=== PATIENT | female | born 1955 | race Caucasian/White ===

== ENCOUNTER 2020-10-22 08:40 | Outpatient (CLI) | payer BC | END 2020-10-22 08:41 | disposition home or self-care (01) | LOC: TBSIIMAG 08:40 | PROVIDERS: ATTEND Nurse Practitioner Family | DX: M47.26 Other spondylosis with radiculopathy, lumbar region (principal); M25.572 Pain in left ankle and joints of left foot | CPT/HCPCS: 72148 ==

== ENCOUNTER 2021-03-20 08:24 | Outpatient (CLI) | payer BC ==
[2021-03-20 10:25] LABS: Hemoglobin 13.3 g/dL (12.0-15.5); Mean Corpuscular HGB CONC 34.4 g/dL (32.0-36.0); Mean Corpuscular Hemoglobin 29.2 pg (27.0-33.0); Mean Corpuscular Volume 84.9 fl (81.6-98.3); Mean Platelet Volume 9.7 fl (7.4-10.4); Platelet Count 326 10x3/uL (150-450); RBC Distribution Width 13.3 % (11.5-14.5); Red Blood Cell (RBC) Count 4.56 10x6/uL (3.90-5.03); White Blood Cell (WBC) Count 7.7 10x3/uL (3.5-10.5)
[2021-03-20 10:34] LABS: Anion Gap 15 mmol/L (10-20); BUN (Urea Nitrogen) 8 mg/dL (9.8-20.1); Calc. Creatinine Clearance 0 mL/min (70-130); Calcium 9.7 mg/dL (7.8-10.44); Carbon Dioxide 27 mmol/L (23-31); Chloride 91 mmol/L (98-107); Glucose 89 mg/dL (80-115); Potassium 3.2 mmol/L (3.5-5.1); Sodium 130 mmol/L (136-145)
[2021-03-20 18:23] LABS: SARS-CoV-2 PCR by NAA Not Detected (NotDetected)
== END 2021-03-20 08:25 | disposition home or self-care (01) ==
LOC: LABBT 08:24
PROVIDERS: ATTEND Neurological Surgery
DX: Z01.818 Encounter for other preprocedural examination (principal); M48.062 Spinal stenosis, lumbar region with neurogenic claudication; Z20.822 Contact with and (suspected) exposure to COVID-19
CPT/HCPCS: 80048; 85027; 93005; 93010; U0003; U0005

== ENCOUNTER 2021-06-13 08:08 | Outpatient (CLI) | payer BC ==
[2021-06-13 12:06] LABS: Hemoglobin 13.1 g/dL (12.0-15.5); Mean Corpuscular HGB CONC 33.7 g/dL (32.0-36.0); Mean Corpuscular Hemoglobin 28.4 pg (27.0-33.0); Mean Corpuscular Volume 84.2 fl (81.6-98.3); Platelet Count 334 10x3/uL (150-450); Red Blood Cell (RBC) Count 4.62 10x6/uL (3.90-5.03); White Blood Cell (WBC) Count 6.7 10x3/uL (3.5-10.5)
[2021-06-13 12:29] LABS: Anion Gap 16 mmol/L (10-20); BUN (Urea Nitrogen) 10 mg/dL (9.8-20.1); Calc. Creatinine Clearance 0 mL/min (70-130); Calcium 9.3 mg/dL (7.8-10.44); Carbon Dioxide 28 mmol/L (23-31); Chloride 87 mmol/L (98-107); Glucose 103 mg/dL (80-115); Potassium 3.9 mmol/L (3.5-5.1); Sodium 127 mmol/L (136-145)
[2021-06-13 17:24] LABS: SARS-CoV-2 PCR by NAA Not Detected (NotDetected)
== END 2021-06-13 08:09 | disposition home or self-care (01) ==
LOC: LABBT 08:08
PROVIDERS: ATTEND Neurological Surgery
DX: Z01.818 Encounter for other preprocedural examination (principal); M48.062 Spinal stenosis, lumbar region with neurogenic claudication; Z20.822 Contact with and (suspected) exposure to COVID-19
CPT/HCPCS: 80048; 85027; 93005; 93010; U0003; U0005

== ENCOUNTER 2021-08-14 08:00 | Inpatient (IN) | payer BC ==
[2021-08-08 11:55] VITALS: BMI 25.8
[2021-08-19] MEDS ORDERED: ceFAZolin 2 GM/Dextrose 50 ML IVPB ONE (07:12)
[2021-08-19] MEDS ORDERED: Midazolam HCl 2 mg/2 ml Vial ONE (07:21)
[2021-08-19] MEDS ORDERED: Fentanyl 100 MCG/2 ML VIAL ONE ×2 (07:30→09:56)
[2021-08-19] MEDS ORDERED: HYDROmorphone 0.5 MG/0.5 ML SYRINGE ONE (07:31)
[2021-08-19] MEDS ORDERED: Ondansetron PF 4 MG/2 ML Vial ONE (07:33)
[2021-08-19] MEDS ORDERED: Rocuronium Bromide 10 MG/ML (10ML VIAL) ONE (07:33)
[2021-08-19] MEDS ORDERED: PROPOFOL 200 MG/20 ML VIAL ONE (07:33)
[2021-08-19] MEDS ORDERED: Dexamethasone 20 MG/5 ML VIAL ONE (07:33)
[2021-08-19] MEDS ORDERED: Lidocaine 1% PF 5 ML VIAL ONE (07:33)
[2021-08-19] MEDS ORDERED: PHENYLEPHRINE-NS 100 MCG/ML 10 ML SYRINGE ONE (07:33)
[2021-08-19] MEDS ORDERED: Glycopyrrolate 0.2 MG/ML 5 ML SYRINGE ONE (07:33)
[2021-08-19] MEDS ORDERED: Promethazine HCl 25 MG/ML VIAL IM PRN (10:24)
[2021-08-19] MEDS ORDERED: HYDROmorphone 2 MG/ML VIAL SLOW IVP PRN (10:24)
[2021-08-19] MEDS ORDERED: Promethazine HCl 25 MG/ML VIAL IVPB PRN (10:24)
[2021-08-19] MEDS ORDERED: Ondansetron HCl/PF 4 MG/2 ML Vial IVP PRN (10:24)
[2021-08-19] MEDS ORDERED: Morphine 4 MG/ML VIAL ONE (11:54)
[2021-08-19] MEDS ORDERED: Morphine 4 MG/ML VIAL SLOW IVP PRN ×2 (14:28→14:30)
[2021-08-19] MEDS ORDERED: Promethazine 25 MG TAB PO PRN (14:30)
[2021-08-19] MEDS ORDERED: Ondansetron PF 4 MG/2 ML Vial IM PRN (14:30)
[2021-08-19] MEDS ORDERED: Milk Of Magnesia 30 ML UDCUP PO PRN (14:30)
[2021-08-19] MEDS ORDERED: HYDROcodone/Acetaminophen 10/325 mg Tablet PO PRN (14:30)
[2021-08-19] MEDS ORDERED: diphenhydrAMINE 50 MG/ML VIAL IVP PRN (14:30)
[2021-08-19] MEDS ORDERED: diphenhydrAMINE 25 MG CAP PO PRN (14:30)
[2021-08-19] MEDS ORDERED: Cyclobenzaprine 10 MG TAB PO PRN (14:30)
[2021-08-19] MEDS ORDERED: traMADol HCl 50 MG TAB PO PRN ×2 (14:30)
[2021-08-19] MEDS ORDERED: Mag-Al 1200 mg/1200 mg/30 ML UDCUP PO PRN (14:30)
[2021-08-19] MEDS: Sodium Chloride 0.9% 1,000 ML IV SCH (16:10)
[2021-08-19] MEDS: ceFAZolin 2 GM/Dextrose 50 ML 2 GM in Premix Bag 1 BAG IVPB SCH ×2 (16:55→23:12)
[2021-08-19] MEDS: HYDROcodone/Acetaminophen 10/325 mg Tablet PO PRN (21:04)
[2021-08-20] MEDS: Sodium Chloride 0.9% 1,000 ML IV SCH ×2 (00:38→18:44)
[2021-08-20] MEDS: Levothyroxine Sodium 112 MCG TAB PO SCH (06:31)
[2021-08-20] MEDS: HYDROcodone/Acetaminophen 10/325 mg Tablet PO PRN ×2 (06:37→12:05)
[2021-08-20] MEDS: ceFAZolin 2 GM/Dextrose 50 ML 2 GM in Premix Bag 1 BAG IVPB SCH ×3 (06:38→23:07)
[2021-08-20] MEDS: Hydrochlorothiazide 25 MG TAB PO SCH (09:42)
[2021-08-20] MEDS: Amlodipine 5 MG TAB PO SCH (09:42)
[2021-08-21] MEDS: HYDROcodone/Acetaminophen 10/325 mg Tablet PO PRN ×3 (02:12→11:51)
[2021-08-21] MEDS: Sodium Chloride 0.9% 1,000 ML IV SCH (04:39)
[2021-08-21] MEDS: Levothyroxine Sodium 112 MCG TAB PO SCH (05:55)
[2021-08-21] MEDS: ceFAZolin 2 GM/Dextrose 50 ML 2 GM in Premix Bag 1 BAG IVPB SCH (05:55)
[2021-08-21] MEDS: Hydrochlorothiazide 25 MG TAB PO SCH (08:03)
[2021-08-21] MEDS: Amlodipine 5 MG TAB PO SCH (08:03)
[2021-08-21 08:58] VITALS: BP 137/71; TEMP 97.8
== END 2021-08-21 12:37 | disposition home or self-care (01) | DRG 460 ==
LOC: SURG A 08-19 06:54 → INTOOBSV 08-19 06:54 → EDSTATUS 08-19 08:00 → MSONC 08-19 12:57 → OBSVTOIN 08-20 15:38
PROVIDERS: ADMIT Neurological Surgery; ATTEND Neurological Surgery
PROC: 0SG1071 Fusion of 2 or more Lumbar Vertebral Joints with Autologous Tissue Substitute, Posterior Approach, Posterior Column, Open Approach (ICD-10-PCS; principal; 2021-08-19)
PROC: 00NY0ZZ Release Lumbar Spinal Cord, Open Approach (ICD-10-PCS; 2021-08-19)
PROC: 0QP004Z Removal of Internal Fixation Device from Lumbar Vertebra, Open Approach (ICD-10-PCS; 2021-08-19)
PROC: 00QT0ZZ Repair Spinal Meninges, Open Approach (ICD-10-PCS; 2021-08-19)
DX: M48.062 Spinal stenosis, lumbar region with neurogenic claudication (principal); G96.09 Other spinal cerebrospinal fluid leak
CPT/HCPCS: 76000; 96374; 96375; 96376; C1713; C1768; C1776; G0378; J0690; J1100; J1170; J2250; J2270; J2405; J2704; J3010; J3370

== ENCOUNTER 2021-08-14 08:08 | Outpatient (CLI) | payer BC ==
[2021-08-14 10:53] LABS: Mean Corpuscular HGB CONC 32.6 g/dL (32.0-36.0); Mean Corpuscular Hemoglobin 27.1 pg (27.0-33.0); Mean Corpuscular Volume 83.3 fl (81.6-98.3); Mean Platelet Volume 9.7 fl (7.4-10.4); Platelet Count 323 10x3/uL (150-450); RBC Distribution Width 14.3 % (11.5-14.5); Red Blood Cell (RBC) Count 4.42 10x6/uL (3.90-5.03); White Blood Cell (WBC) Count 7.1 10x3/uL (3.5-10.5)
[2021-08-14 11:22] LABS: Anion Gap 14 mmol/L (10-20); BUN (Urea Nitrogen) 13 mg/dL (9.8-20.1); Calc. Creatinine Clearance 0 mL/min (70-130); Calcium 9.5 mg/dL (7.8-10.44); Carbon Dioxide 30 mmol/L (23-31); Chloride 97 mmol/L (98-107); Glucose 95 mg/dL (80-115); Potassium 3.6 mmol/L (3.5-5.1); Sodium 137 mmol/L (136-145)
[2021-08-14 21:44] LABS: SARS-CoV-2 PCR by NAA Not Detected (NotDetected)
== END 2021-08-14 08:09 | disposition home or self-care (01) ==
LOC: LABBT 08:08
PROVIDERS: ATTEND Neurological Surgery
DX: Z01.818 Encounter for other preprocedural examination (principal); M48.062 Spinal stenosis, lumbar region with neurogenic claudication; Z20.822 Contact with and (suspected) exposure to COVID-19
CPT/HCPCS: 80048; 85027; 93005; 93010; U0003; U0005

== ENCOUNTER 2021-09-05 08:58 | Outpatient (CLI) | payer BC | END 2021-09-05 08:59 | disposition home or self-care (01) | LOC: TBSIIMAG 08:58 | PROVIDERS: ATTEND Neurological Surgery | DX: M48.062 Spinal stenosis, lumbar region with neurogenic claudication (principal); M51.36 Other intervertebral disc degeneration, lumbar region; M43.16 Spondylolisthesis, lumbar region; Z98.890 Other specified postprocedural states | CPT/HCPCS: 72100 ==

== ENCOUNTER 2022-06-09 09:09 | Outpatient (CLI) | payer BC | END 2022-06-09 09:10 | disposition home or self-care (01) | LOC: TBSIIMAG 09:09 | PROVIDERS: ATTEND Neurological Surgery | DX: M54.16 Radiculopathy, lumbar region (principal); Z98.890 Other specified postprocedural states | CPT/HCPCS: 72100 ==